=== PATIENT | female | born 2005 | race Caucasian/White ===

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

== ENCOUNTER → 2023-01-22 10:10 | Outpatient (BNVA) | payer MEDICAID, SELFPAY | PROVIDERS: PCP Nurse Practitioner Family; Referring Provider Nurse Practitioner Family; Visit Provider Nurse Practitioner Family | DX: B35.3 Tinea pedis (principal); L74.513 Primary focal hyperhidrosis, soles; B36.0 Pityriasis versicolor; L30.9 Dermatitis, unspecified | CPT/HCPCS: 11102; 99204 ==

== ENCOUNTER → 2023-04-29 14:27 | Outpatient (BNVA) | payer MEDICAID, SELFPAY | PROVIDERS: Visit Provider Nurse Practitioner Family | DX: B35.3 Tinea pedis (principal); L30.4 Erythema intertrigo | CPT/HCPCS: 99214 ==

== ENCOUNTER → 2023-07-07 15:00 | Outpatient (BNVA) | payer MEDICAID, SELFPAY | PROVIDERS: PCP Nurse Practitioner Family; Visit Provider Nurse Practitioner Family | DX: N39.0 Urinary tract infection, site not specified (principal); R32 Unspecified urinary incontinence | CPT/HCPCS: 81000; 87077; 87086; 87184 ==

== ENCOUNTER → 2023-07-16 14:32 | Outpatient (BNVA) | payer MEDICAID, SELFPAY | PROVIDERS: PCP Nurse Practitioner Family; Visit Provider Nurse Practitioner Family | DX: N30.00 Acute cystitis without hematuria (principal) | CPT/HCPCS: 81000; 87086 ==

== ENCOUNTER → 2023-07-30 15:00 | Outpatient (BNVA) | payer MEDICAID, SELFPAY | PROVIDERS: PCP Nurse Practitioner Family; Visit Provider Nurse Practitioner Family | DX: B35.3 Tinea pedis (principal); L21.8 Other seborrheic dermatitis; L81.4 Other melanin hyperpigmentation | CPT/HCPCS: 99214 ==

== ENCOUNTER → 2023-09-04 14:16 | Outpatient (BNVA) | payer MEDICAID, SELFPAY | PROVIDERS: PCP Nurse Practitioner Family; Visit Provider Nurse Practitioner Women's Health | DX: N39.0 Urinary tract infection, site not specified (principal) | CPT/HCPCS: 81000 ==

== ENCOUNTER → 2023-09-23 12:04 | Outpatient (BNVA) | payer MEDICAID, SELFPAY | PROVIDERS: PCP Nurse Practitioner Family; Visit Provider Nurse Practitioner Women's Health | DX: N92.5 Other specified irregular menstruation (principal) | CPT/HCPCS: 76856 ==

== ENCOUNTER → 2024-01-04 10:55 | Outpatient (BNVA) | payer MEDICAID, SELFPAY | PROVIDERS: PCP Nurse Practitioner Family; Referring Provider Nurse Practitioner Family; Visit Provider Psychiatry & Neurology Neurology | DX: G40.919 Epilepsy, unspecified, intractable, without status epilepticus (principal) | CPT/HCPCS: 99203 ==

== ENCOUNTER 2024-01-08 08:10 | Outpatient (CLI) | payer MEDICAID, SELFPAY ==
[2024-01-08 08:49] LABS: Basophils # 0.1 10^3/uL (0.0-0.1); Basophils % 1.5 %; Eosinophils # 0.6 10^3/uL (0.0-0.8); Eosinophils % 8.8 %; Hematocrit 35.5 % (36-47); Lymphocytes # 2.1 10^3/uL (1.5-6.5); Lymphocytes % 32.5 %; Mean Corpuscular HGB Conc 32.4 g/dL (30-55); Mean Corpuscular Hemoglobin 32.6 pg (27-33); Mean Corpuscular Volume 100.6 fl (85-98); Mean Platelet Volume 9.8 fL (7.4-10.4); Monocytes # 0.5 10^3/uL (0.2-0.9); Monocytes % 7.6 %; Neutrophils # 3.17 10^3/uL (1.8-8.0); Neutrophils % 49.1 %; Nucleated Red Blood Cells % 0 %; Platelet Count 329 10^3/cmm (157-399); Red Blood Count 3.53 10^6/uL (3.85-5.65); Red Cell Distribution Width 12.6 % (12.1-15.1); White Blood Count 6.46 10^3/uL (4.5-13.0)
[2024-01-08 09:28] LABS: 25 Hydroxy Vitamin D 37 ng/mL (30-100); Alanine Aminotransferase 6 U/L (0-33); Albumin Level 4.5 g/dL (3.5-5.2); Alkaline Phosphatase 117 U/L (35-105); Anion Gap 17.2 (5-19); Aspartate Amino Transferase 11 U/L (0-32); Blood Urea Nitrogen 9 mg/dL (6-20); Calcium 9.6 mg/dL (8.5-10.5); Carbon Dioxide 23 mmol/L (22-29); Chloride 103 mmol/L (98-107); Globulin 3.4 g/dL (1.3-4.6); Glomerular Filtration Rate 106.7 mL/min (90-130); Glucose 87 mg/dL (65-115); Osmolality Calculated 286 mOsm/kg (285-295); Potassium 4.2 mmol/L (3.5-5.1); Sodium 139 mmol/L (136-145); Thyroid Stimulating Hormone 2.05 uIU/mL (0.27-4.20); Total Bilirubin 0.2 mg/dL (0.15-1.2); Total Protein 7.9 g/dL (6.6-8.7); Vitamin B12 224 pg/mL (232-1245)
[2024-01-08 09:38] LABS: Free T4 Free Thyroxine 0.85 ng/dL (0.82-1.77); T3 Free 3.3 PG/ML (2.0-4.4)
[2024-01-08 12:11] LABS: Folate Level 5.1 ng/mL (4.8-37.3)
[2024-01-12 09:44] LABS: Methylmalonic Acid 841 nmol/L (55-335)
== END 2024-01-08 08:11 | disposition home or self-care (01) ==
LOC: LAB 08:13
PROVIDERS: PCP Nurse Practitioner Family; Visit Provider Psychiatry & Neurology Neurology
DX: G40.409 Other generalized epilepsy and epileptic syndromes, not intractable, without status epilepticus (principal); G40.909 Epilepsy, unspecified, not intractable, without status epilepticus; E55.9 Vitamin D deficiency, unspecified
CPT/HCPCS: 80053; 80167; 80168; 80175; 82306; 82607; 82746; 83090; 83735; 83921; 84439; 84443; 84481; 85025

== ENCOUNTER 2024-01-21 08:44 | Outpatient (CLI) | payer MEDICAID, SELFPAY | END 2024-01-21 08:45 | disposition home or self-care (01) | LOC: LAB 08:45 | PROVIDERS: PCP Nurse Practitioner Family; Visit Provider Psychiatry & Neurology Neurology | DX: G40.919 Epilepsy, unspecified, intractable, without status epilepticus (principal) | CPT/HCPCS: 36415; 80168 ==

== ENCOUNTER 2024-01-28 15:26 | Oncology outpatient (recurring) (ONCR) | payer MEDICAID, SELFPAY ==
--- OUTSIDE RECORDS SUMMARY | 2024-01-28 15:29 | XMS_ITS ---
Author Name Unknown Organization [facility] Address [address] [place] [address] Care Team Providers Care Screw Down Name Role Phone Carlos OBRIEN-Britany Montiel Primary Care Provider Unav Kael Mccormick Unavailable [phone] Allergies Allergen (clinical drug ingredient) Drug/Non Drug Allergy documented on EMR Reaction Allergy Type Onset Date Status Pollen Pollen Unknown Allergy Active REASON FOR VISIT LT KNEE Medications Medication SIG (Take, Route, Fr equency, Duration) Notes Start Date End Date Status CeleBREX 200 MG 1 capsule with food Orally Once a day for 30 days 01/06/2024 Active Nasal [place] Active Onfi Active ZyrTEC Active Cannabidiol Active Magnesium Active Multi Vitamin Active Eye Drops Active Felbamate Active LaMICtal Active Ethosuximide Active Vital Signs Blood pressure systolic 138 mm Hg 01/06/20 24 Blood pressure diastolic 98 mm Hg 024 Heart Rate 101 /min 01/06/2024 Height 62 in 01/06/2024 Oximetry 98 % 01/06/2024 Height-cm 157.48 cm 01/06/2024 Encounters Encounter Location Date Provider Diagnosis [facility] [address] [place] [address], [place] [address] 01/06/2024 Kael Metzger Postoperative state Z98.890 Assessments Encounter Date Diagnosis (ICD Code) Assessment Notes Treat ment Notes Treatment Clinical Notes 01/06/2024 Postoperative state (ICD-10 - Z98.890) Plan Of Treatment Medication Medication Name Sig Start Date Stop Date Notes CeleBREX 200 MG 1 capsule with food Orally Once a day for 30 days 01/06/2024 Next Appt Details Provider Name:Kael Metzger , 02/10/2024 01:00:00 PM, [address] [place] [address], [place], [address], Progress Notes * Sravani RUFFINOB:[birth year] (18 yo F)Acc No.[id number]:01/06/2024 Patient:?Tamar RUFFIN Provider:?Kael Metzger MD :2005???Age:18 Y???Sex:Female D ate:01/06/2024 Address:[address] [place], [place] [id number] Pcp:GLORIA Saavedra Check In:11:07 AM CSTCheck O ut:03:02 PM 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 Lissa is followed for a tibial tubercle transfer and medial patellofemoral ligament reconstruction. She is here for routine check. Her incisions look great. She has little swelling in her knee. * ROS:?Negative except as stated in HPI. . * Medical History:? * Surgical History:?tonsillect terese and adenoidectomy 10/2018vagus nerve stimulation 11/2022 * Hospitalization/Major Diagno stic Procedure:?Covid urgical HX * Family History:?Father: inessa cabrera 45 yrs.?Mother: alive 42 yrs.?Siblings: alive 16 yrs.? Grandma-unspecified Heart disease, diabetic.? Great Grandpa unspecified - heart attack, diabetic.? Great Grandma - Brain Tumor/Cancer. * Medications:?TakingCannabidi ol Ethosuximide Eye Drops Felbamate LaMICtal Magnesium Multi Vitamin Nasal [place] Onfi ZyrTEC Medication List reviewed and reconciled with the patientTaking Cannabidiol Taking Ethosuximide Taking Eye Drops Taking Felbamate Taking LaMICtal Taking Magnesium Taking Multi Vitamin Taking Nasal [place] Taking Onfi Taking ZyrTEC Medication List reviewed and reconciled with the patient * Allergies:?Pollenno[Allergie s Verified] Objective: * Vitals:?Ht: 62 in, BP:138/98 mm Hg, HR:101/min, Oxygen sat %:98%, O2 Source: ra, Ht-cm: 157.48 cm. Assessment: * Assessment: 1.?Postoperative state - Z98 .890 (Primary)??? I will have Tamar tyler orking on passive and active range of motion of the right knee with the therapist and little sprain. I will see her back in 4 weeks. She states she did best with Tylenol and Celebrex for pain I will refill those medications. Plan: * Treatment: * Procedure Codes:?3075F SYST BP GE 130 - 139MM HG * Billing Information: * Visit Code:? * Procedure Codes:? 3075F SYST BP GE 130 - 139MM HG. * Sign off status: Completed true * Provider:?Kael Metzger MD Date:?01/05 Generated for Bryan kohli/Xander/Spikeitting on:?01/28/2024 03:29 PM CDT
--- OUTSIDE RECORDS SUMMARY | 2024-01-28 15:29 | XMS_ITS ---
Author Name Unknown Organization [facility] Address [address] [facility] [place] [address] Care Team Providers Care Director Of Marketing Operations Name Role Phone Britany Fernandez Primary Care Provider Unav Kael Mccormick Unavailable [phone] REASON FOR VISIT LT KNEE Encounters Encounter Location Date Provider Diagnosis [facility] [address] [place] [address] 12/30/2023 Kael Metzger Plan Of Treatment Next Appt Details Provider Name:Kael Metzger , 02/10/2024 01:00:00 PM, [address] [place] [address], [place], [address], Progress Notes * Sravani RUFFINOB:[birth year] (18 yo F)Acc No.[id number]:12/30/2023 Patient:?Tamar RUFFIN Provider:?Kael Metzger MD :2005???Age:18 Y???Sex:Female D ate:12/30/2023 Address:[address] [place], [place] [phone] Pcp:GLORIA Saavedra Subjective: * Chief Complaints: * ???1. LT KNEE. * Medical History:? Objective: * Vitals:? Assessment: Plan: * Treatment: * Billing Information: * Visit Code:? * Procedure Codes:? * Electronic signature of Bernie Metzger MD on 01/28/2024 at 03:29 PM CDT Sign off status: Pending * Provider:?Kael Metzger MD Date:?12/29 Generated for Bryan kohli/Xander/Paula on:?01/28/2024 03:29 PM CDT
--- OUTSIDE RECORDS SUMMARY | 2024-01-28 15:29 | XMS_ITS ---
Author Name Unknown Organization [facility] Address [address] [place] [address] Care Team Providers Care Telephone Operator Name Role Phone Carlos OBRIEN-Britany Montiel Primary Care Provider Unav ailable Kael Metzger Unavailable [phone] REASON FOR VISIT Needs referral Encounters Encounter Location Date Provider Diagnosis [facility] [address] [place] [address] 01/25/2024 Kael Metzger Plan Of Treatment Next Appt Details Provider Name:Kael Metzger , 02/10/2024 01:00:00 PM, [address] [place], [address], Progress Notes * Sravani RUFFINOB:[birth year] (18 yo F)Acc No.[id number]:01/25/2024 Patient:?Ministerio RUFFINabelle :2005???Age:18 Y???Sex:Female Address:[address] [place] [address], [address] * true * Date:? Generated for Printi ng/Faana rosag/eTransmitting on:?01/28/2024 03:29 PM CDT
--- OUTSIDE RECORDS SUMMARY | 2024-01-28 15:30 | XMS_ITS | Patient Health Record ---
Author Name Unknown Organization [facility] Address [address] [place] [address] Care Team Providers Care Director Of Science Name Role Phone Carlos OBRIEN-Britany Montiel Primary Care Provider Unav Kael Mccormick Unavailable [phone] Allergies Allergen (clinical drug ingredient) Drug/Non Drug Allergy documented on EMR Reaction Allergy Type Onset Date Status Pollen Pollen Unknown Allergy Active Reason For Referral Reason Evaluate and treat p atient for PROM and AROM S/P RIGHT knee tibial transfer and medical patellofemoral ligament reconstruction on 12/17/2023, 2-3 times a week for 4-6 weeks Diagnosis 1 Postoperative state (Z98.890) Diagnosis 2 Patellar instability of left knee (M25.362) Referral Organization [facility] Referring Provider First Name Kael Referring Provider Last Name Domenica Referring Provider Speciality Orthopedic Surgery Referred Provider Referred Provider Specialty Physical The rapist Referral Priority Routine Medications Medication SIG (Take, Route, Fr equency, Duration) Notes Start Date End Date Status CeleBREX 200 MG 1 capsule with food Orally Once a day for 30 days 01/06/2024 Active Magnesium Active Multi Vitamin Active Nasal [place] Active Onfi Active ZyrTEC Active Cannabidiol Active Ethosuximide Active Eye Drops Active Felbamate Active LaMICtal Active Vital Signs Heart Rate 101 /min 01/06/2024 Height-cm 157.48 cm 01/06/2024 Oximetry 98 % 01/06/2024 Blood pressure diastolic 98 mm Hg 01/06/2024 Weight-kg 92.7 kg 10/19/2023 Height 62 in 01/06/2024 Blood pressure systolic 138 mm Hg 01/06/2024 Weight 204.37 lbs 10/19/2023 BMI 37.38 kg/m2 10/19/2023 Encounters Encounter Location Date Provider Diagnosis [facility] [address] [place] [address] 11/19/2023 Kael Domenica Patellar instability of left knee M25.362 [facility] [address] [place] [address] 01/25/2024 Kaelaron Grulloneder [facility] [address] [place] [address] 10/19/2023 Kael Metzger Left knee pain, unspecified chronicity M25.562 and Patellar instability of left knee M25.362 [facility] [address] [place] [address] 12/17/2023 Kael Metzger [facility] [address] [place] [address] 01/06/2024 Kael Metzger Postoperative state Z98.890 Assessments Encounter Date Diagnosis (ICD Code) Assessment Notes Treat ment Notes Treatment Clinical Notes 10/19/2023 Left knee pain, unspecified chronicity (ICD-10 - M25.562) 10/19/2023 Patellar instability of left knee (ICD-10 - M25.362) 11/19/2023 Patellar instability of left knee (ICD-10 - M25.362) 01/06/2024 Postoperative state (ICD-10 - Z98.890) Plan Of Treatment Pending Test Test Name Order Date Knee 1 or 2V 10/19/2023 Basic Metabolic Panel (BMP) 98709 2023 CBC Reflex Man Diff 37721, 07667 024 Electrocardiogram 12 Lead Tracing-12662 11/19/2023 Next Appt Details Provider Name:Kael Christiane Domenica , 02/10/2024 01:00:00 PM, [address] [place] [address], [place], [address], Insurance Providers Payer Name Payer Address Payer Phone Subscriber Number Group Number Insured Name Patient Relationship to Insured Coverage Start Date Coverage End Date [place] Medicaid [address] [facility] [place] [address] [id number] Tamar Ruffin Self - patient is the insured Medical (General) History Medical History History ICD Code whooping cough (pertussis) epilepsy Surgical History Surgery Date(Month/Year) tonsillectomy and adenoidectomy 10/2018 vagus nerve stimulation 11/2022 Hospitalization History Reason Date(Month/Year) Surgical HX Covid 07/2021
== END 2024-02-06 23:59 | disposition home or self-care (01) ==
PROVIDERS: Visit Provider Internal Medicine Medical Oncology
DX: E53.8 Deficiency of other specified B group vitamins (principal); D64.9 Anemia, unspecified
CPT/HCPCS: 99204

== ENCOUNTER 2024-02-01 11:57 | Outpatient (RCR) | payer MEDICAID, SELFPAY | END 2024-02-06 18:00 | disposition home or self-care (01) | LOC: SPT 11:57 | PROVIDERS: Visit Provider Orthopaedic Surgery | DX: Z98.890 Other specified postprocedural states (principal); M25.362 Other instability, left knee | CPT/HCPCS: 97110; 97116; 97161 ==

== ENCOUNTER 2024-02-07 06:00 | Outpatient (RCR) | payer MEDICAID, SELFPAY | END 2024-03-07 23:59 | disposition home or self-care (01) | LOC: SPT 06:00 | PROVIDERS: Visit Provider Orthopaedic Surgery | DX: Z47.89 Encounter for other orthopedic aftercare (principal); M25.362 Other instability, left knee | CPT/HCPCS: 97110 ==

== ENCOUNTER → 2024-02-18 15:41 | Outpatient (BNVA) | payer MEDICAID, SELFPAY | PROVIDERS: Visit Provider Psychiatry & Neurology Neurology | DX: G40.919 Epilepsy, unspecified, intractable, without status epilepticus (principal); G40.909 Epilepsy, unspecified, not intractable, without status epilepticus | CPT/HCPCS: 95816 ==

== ENCOUNTER 2024-02-29 14:27 | Oncology outpatient (recurring) (ONCR) | payer MEDICAID, SELFPAY ==
--- OUTSIDE RECORDS SUMMARY | 2024-02-11 10:53 | XMS_ITS ---
Author Name Unknown Organization [facility] Address [address] [place] [address] Care Team Providers Care Die Press Operator Name Role Phone Carlos OBRIEN-Britany Montiel Primary Care Provider Unav ailable Kael Metzger Unavailable [phone] REASON FOR VISIT Needs referral Encounters Encounter Location Date Provider Diagnosis [facility] [address] [place] [address] 01/25/2024 Kael Metzger Plan Of Treatment Next Appt Details Provider Name:Kael Metzger , 03/18/2024 11:00:00 AM, [address] [place], [address], Progress Notes * Sravani RUFFINOB:[birth year] (18 yo F)Acc No.[id number]:01/25/2024 Patient:?Ministerio RUFFINabelle :2005???Age:18 Y???Sex:Female Address:[address] [place] [address], [address] * true * Date:? Generated for Printi seun/Xander/eTransmitting on:?02/11/2024 10:53 AM CDT
--- OUTSIDE RECORDS SUMMARY | 2024-02-11 10:53 | XMS_ITS ---
Author Name Unknown Organization [facility] Address [address] [place] [address] Care Team Providers Care Direct Care Worker Name Role Phone Britany Fernandez Primary Care Provider Unav Kael Mccormick Unavailable [phone] Allergies Allergen (clinical drug ingredient) Drug/Non Drug Allergy documented on EMR Reaction Allergy Type Onset Date Status Pollen Pollen Unknown Allergy Active REASON FOR VISIT LEFT KNEE Medications Medication SIG (Take, Route, Fr equency, Duration) Notes Start Date End Date Status Celecoxib 200 MG TAKE 1 CAPSULE BY [facility] ONCE DAILY WITH FOOD FOR 30 DAYS for 30 Act nikolai Ethosuximide Active Cannabidiol Active Onfi Active ZyrTEC Active Felbamate Active Multi Vitamin Active Nasal [place] Active LaMICtal Active Magnesium Active Eye Drops Active Vital Signs Blood pressure systolic 110 mm Hg 02/10/20 24 Blood pressure diastolic 73 mm Hg 024 Heart Rate 88 /min 02/10/2024 Height 62 in 02/10/2024 Oximetry 98 % 02/10/2024 Height-cm 157.48 cm 02/10/2024 Encounters Encounter Location Date Provider Diagnosis [facility] [address] [place] [address], [place] [address] 02/10/2024 Kael Metzger Left knee pain, unspecified chronicity M25.562 Assessments Encounter Date Diagnosis (ICD Code) Assessment Notes Treat ment Notes Treatment Clinical Notes 02/10/2024 Left knee pain, unspecified chronicity (ICD-10 - M25.562) Plan Of Treatment Pending Test Test Name Order Date X-RAY EXAM OF KNEE 1 OR 2 02/10/2024 Next Appt Details Provider Name:Kael Metzger , 03/18/2024 11:00:00 AM, [address] [place] [address], [place], [address], Progress Notes * Sravani RUFFINOB:[birth year] (19 yo F)Acc No.[id number]:02/10/2024 Patient:?Tamar RUFFIN Provider:?Kael Metzger MD :2005???Age:19 Y???Sex:Female D ate:02/10/2024 Address:[address] [place], [place] [phone] Pcp:GLORIA Saavedra Check In:12:57 PM CSTCheck O ut:02:00 PM 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 She has been working with therapy in [place]. * ROS:?Negative except as stated in HPI. * Medical History:? * Surgical History:?tonsillect terese and adenoidectomy 10/2018vagus nerve stimulation 11/2022 * Hospitalization/Major Diagno stic Procedure:?Covid urgical HX * Family History:?Father: inessa cabrera 45 yrs.?Mother: alive 42 yrs.?Siblings: alive 16 yrs.? Grandma-unspecified Heart disease, diabetic.? Great Grandpa unspecified - heart attack, diabetic.? Great Grandma - Brain Tumor/Cancer. * Medications:?TakingCannabidi ol Celecoxib 200 MG Capsule TAKE 1 CAPSULE BY MOUTH ONCE DAILY WITH FOOD FOR 30 DAYS Ethosuximide Eye Drops Felbamate LaMICtal Magnesium Multi Vitamin Nasal [place] Onfi ZyrTEC Medication List reviewed and reconciled with the patientTaking Cannabidiol Taking Celecoxib 200 MG Capsule TAKE 1 CAPSULE BY MOUTH ONCE DAILY WITH FOOD FOR 30 DAYS Taking Ethosuximide Taking Eye Drops Taking Felbamate Taking LaMICtal Taking Magnesium Taking Multi Vitamin Taking Nasal [place] Taking Onfi Taking ZyrTEC Medication List reviewed and reconciled with the patient * Allergies:?Pollenno[Allergie s Verified] Objective: * Vitals:?Ht: 62 in, BP:110/73 mm Hg, HR:88/min, Oxygen sat %:98%, O2 Source: ra, Ht-cm: 157.48 cm. * Examination: ???General Examination: ???On examination of her left knee there is a small open area in the midportion of her incision which seems superficial. I can express no drainage. I suspect this was a stitch abscess or irritation. She can?full extension and bend 90 degrees. Her patella tracks well. ??? Assessment: * Assessment: 1.?Left knee pain, unspecifi ed chronicity - M25.562 (Primary)??? Tamar will continue with outpatient therapy. I will have her discontinue her brace as I think it is contributing to her wound problems. She will continue with crutches until her strength is better and she is walking normal. I will see her back in 4 weeks in [place]. Plan: * Treatment: * Procedure Codes:?78767 X-RAY EXAM OF KNEE, 1 OR 2 * Billing Information: * Visit Code:? * Procedure Codes:? 71341 X-RAY EXAM OF KNEE, 1 OR 2. * Sign off status: Completed true * Provider:?Kael Metzger MD Date:?02/09 Generated for Bryan kohli/Xander/Spikeitting on:?02/11/2024 10:53 AM CDT
--- OUTSIDE RECORDS SUMMARY | 2024-02-11 10:54 | XMS_ITS | Patient Health Record ---
Author Name Unknown Organization [facility] Address [address] [place] [address] Care Team Providers Care Planting Machine Operator Name Role Phone Carlos OBRIEN-Britany Montiel Primary Care Provider Unav Kael Mccormick Unavailable [phone] Allergies Allergen (clinical drug ingredient) Drug/Non Drug [...] instability of left knee (M25.362) Referral Organization [facility] Referring Provider First Name Kael Referring Provider Last Name Domenica Referring Provider Speciality Orthopedic Surgery Referred Provider [facility] Referred Provider Specialty 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 The rapist Referral Priority Routine Medications Medication SIG (Take, Route, Fr equency, Duration) Notes Start Date End Date Status Eye Drops Active Felbamate Active Celecoxib 200 MG TAKE 1 CAPSULE BY [facility] ONCE DAILY WITH FOOD FOR 30 DAYS for 30 Act nikolai Ethosuximide Active Cannabidiol Active Onfi Active ZyrTEC Active Multi Vitamin Active Nasal [place] Active LaMICtal Active Magnesium Active Vital Signs Heart Rate 88 /min 02/10/2024 Blood pressure diastolic 73 mm Hg 02/10/2024 Oximetry 98 % 02/10/2024 Height-cm 157.48 cm 02/10/2024 Weight-kg 92.7 kg 10/19/2023 Height 62 in 02/10/2024 Blood pressure systolic 110 mm Hg 02/10/2024 Weight 204.37 lbs 10/19/2023 BMI 37.38 kg/m2 10/19/2023 Encounters Encounter Location Date Provider Diagnosis [facility] [address] [place] [address] 10/19/2023 Kael Metzger Left knee pain, unspecified chronicity M25.562 and Patellar instability of left knee M25.362 [facility] [place] [address] [place] [address] 12/17/2023 Kael Metzger [facility] [address] [place] [address] 01/06/2024 Kael Metzger Postoperative state Z98.890 [facility] [place] [address] [place] [address] 02/10/2024 Kael Metzger Left knee pain, unspecified chronicity M25.562 [facility] [place] [address] [place] [address] 11/19/2023 Kael Metzger Patellar instability of left knee M25.362 [facility] [place] [address] [place] [address] 01/25/2024 Kael Metzger Assessments Encounter Date Diagnosis (ICD Code) Assessment Notes Treat ment Notes Treatment Clinical Notes 10/19/2023 Left knee pain, unspecified chronicity (ICD-10 - M25.562) 10/19/2023 Patellar instability of left knee (ICD-10 - M25.362) 11/19/2023 Patellar instability of left knee (ICD-10 - M25.362) 01/06/2024 Postoperative state (ICD-10 - Z98.890) 02/10/2024 Left knee pain, unspecified chronicity (ICD-10 - M25.562) Plan Of Treatment Pending Test Test Name Order Date X-RAY EXAM OF KNEE 1 OR 2 02/10/2024 Knee 1 or 2V 10/19/2023 Basic Metabolic Panel (BMP) 85496 2023 CBC Reflex Man Diff 82553, 03669 024 Electrocardiogram 12 Lead Tracing-81121 11/19/2023 IH Knee 2V Left - 45370 02/10/2024 IH Knee 2V Left - 33439 02/10/2024 Next Appt Details Provider Name:Kael Metzger , 03/18/2024 11:00:00 AM, [address] [facility], [place], [address], Insurance Providers Payer Name Payer Address Payer Phone Subscriber Number Group Number Insured Name Patient Relationship to Insured Coverage Start Date Coverage End Date [place] Medicaid [address] [place] [address] [id number] Tamar Ruffin Self - patient is the insured Medical (General) History Medical History History ICD Code whooping cough (pertussis) epilepsy Surgical History Surgery Date(Month/Year) tonsillectomy and adenoidectomy 10/2018 vagus nerve stimulation 11/2022 Hospitalization History Reason Date(Month/Year) Surgical HX Covid 07/2021
--- OUTSIDE RECORDS SUMMARY | 2024-02-11 10:54 | XMS_ITS ---
Author Name Unknown Organization [facility] Address [address] [place] [address] Care Team Providers Care Tool Filer Hand Name Role Phone Carlos OBRIEN-Britany Montiel Primary Care Provider Unav Kael Mccormick Unavailable [phone] Allergies Allergen (clinical drug ingredient) Drug/Non Drug Allergy documented on EMR Reaction Allergy Type Onset Date Status Pollen Pollen Unknown Allergy Active REASON FOR VISIT LT KNEE Medications Medication SIG (Take, Route, Fr equency, Duration) Notes Start Date End Date Status CeleBREX 200 MG 1 capsule with food Orally Once a day for 30 days 01/06/2024 Active Nasal [place] Active Onfi Active ZyrTEC Active Cannabidiol Active Magnesium Active Multi Vitamin Active Eye Drops Active Felbamate Active LaMICtal Active Ethosuximide Active Vital Signs Blood pressure systolic 138 mm Hg 01/06/20 24 Blood pressure diastolic 98 mm Hg 024 Heart Rate 101 /min 01/06/2024 Height 62 in 01/06/2024 Oximetry 98 % 01/06/2024 Height-cm 157.48 cm 01/06/2024 Encounters Encounter Location Date Provider Diagnosis [facility] [address] [place] [address], [place] [address] 01/06/2024 Kael Metzger Postoperative state Z98.890 Assessments Encounter Date Diagnosis (ICD Code) Assessment Notes Treat ment Notes Treatment Clinical Notes 01/06/2024 Postoperative state (ICD-10 - Z98.890) Plan Of Treatment Medication Medication Name Sig Start Date Stop Date Notes CeleBREX 200 MG 1 capsule with food Orally Once a day for 30 days 01/06/2024 Next Appt Details Provider Name:Kael Metzger , 03/18/2024 11:00:00 AM, [address] [place] [address], [place], [address], Progress Notes * Sravani RUFFINOB:[birth year] (18 yo F)Acc No.[id number]:01/06/2024 Patient:?Tamar RUFFIN Provider:?Kael Metzger MD :2005???Age:18 Y???Sex:Female D ate:01/06/2024 Address:[address] [place], [place] [address] Pcp:GLORIA Saavedra Check In:11:07 AM CSTCheck Yariel ut:03:02 PM MILIEU COUNSELOR Subjective: * Chief Complaints: * ???LT KNEE [...] Drops Felbamate LaMICtal Magnesium Multi Vitamin Nasal [place] Onfi ZyrTEC Medication List reviewed and reconciled with the patientTaking Cannabidiol Taking Ethosuximide Taking Eye Drops Taking Felbamate Taking LaMICtal Taking Magnesium Taking Multi Vitamin Taking Nasal [place] Taking Onfi Taking ZyrTEC Medication List reviewed [...] Metzger MD Date:?01/05 Generated for Bryan kohli/Xander/Spikeitting on:?02/11/2024 10:53 AM CDT
[2024-02-11 12:22] LABS: Basophils # 0.1 10^3/uL (0.0-0.1); Basophils % 1.6 %; Eosinophils # 0.7 10^3/uL (0.0-0.8); Eosinophils % 10.4 %; Hematocrit 34.8 % (36-47); Lymphocytes # 1.6 10^3/uL (0.8-4.8); Lymphocytes % 24.8 %; Mean Corpuscular HGB Conc 33.3 g/dL (30-55); Mean Corpuscular Volume 98.9 fl (85-98); Mean Platelet Volume 9.6 fL (7.4-10.4); Monocytes # 0.4 10^3/uL (0.2-0.9); Monocytes % 6.8 %; Neutrophils % 55.9 %; Nucleated Red Blood Cells % 0 %; Platelet Count 273 10^3/cmm (157-399); Red Blood Count 3.52 10^6/uL (3.85-5.65); Red Cell Distribution Width 12.2 % (12.1-15.1); White Blood Count 6.44 10^3/uL (3.29-11.43)
[2024-02-11 12:57] LABS: Alanine Aminotransferase 9 U/L (0-33); Albumin Level 4.6 g/dL (3.5-5.2); Alkaline Phosphatase 123 U/L (35-105); Anion Gap 16.2 (5-19); Aspartate Amino Transferase 12 U/L (0-32); Blood Urea Nitrogen 10 mg/dL (6-20); Calcium 9.4 mg/dL (8.5-10.5); Carbon Dioxide 23 mmol/L (22-29); Chloride 104 mmol/L (98-107); Ferritin 20 ng/mL (15-150); Globulin 2.9 g/dL (1.3-4.6); Glomerular Filtration Rate 126.2 mL/min (90-130); Glucose 99 mg/dL (65-115); Iron 56 ug/dL (37-145); Osmolality Calculated 287 mOsm/kg (285-295); Percent Saturation 17.9 % (20-50); Potassium 4.2 mmol/L (3.5-5.1); Sodium 139 mmol/L (136-145); Total Bilirubin 0.2 mg/dL (0.15-1.2); Total Iron Binding Capacity 312 mcg/dl; Total Protein 7.5 g/dL (6.6-8.7); Unsaturated Iron Binding 256 ug/dL (112-347)
[2024-02-11 13:09] LABS: Folate Level 7.6 ng/mL (4.8-37.3)
[2024-02-11 13:13] LABS: Vitamin B12 421 pg/mL (232-1245)
[2024-02-14 03:50] LABS: Methylmalonic Acid 139 nmol/L (55-335)
[2024-02-15 15:40] LABS: Intrinsic Factor Blocking AB NEGATIVE
== END 2024-03-07 23:59 | disposition home or self-care (01) ==
PROVIDERS: Visit Provider Internal Medicine Medical Oncology
DX: D64.9 Anemia, unspecified (principal)
CPT/HCPCS: 36415; 80053; 82607; 82728; 82746; 83540; 83550; 83921; 85025; 86340; 99214

== ENCOUNTER 2024-03-14 10:36 | Emergency (ER) | payer MEDICAID, SELFPAY ==
[2024-03-14] VITALS (9 sets, daily range): BP systolic 115–130; BP diastolic 71–83; PULSE 91–108; RESP 16–18; TEMP 36.7; O2SAT 94–98; BMI 34.3
--- NOTE | 2024-03-14 11:37 | W.ED.SEIZURE ---
HPI - Seizure General: Chief Complaint: Seizure Stated Complaint: seizures Time Seen by Provider: 03/14/24 11:08 History of Present Illness: HPI Narrative: 19-year-old female with a long history of seizure disorder on multiple different seizure medications and with a vagal nerve stimulator who recently started following with Dr. Raymundo in neurology who presents to the emergency room after having 2 tonic-clonic seizures of about 5 minutes and an absence seizure this morning. Mom says that when the vagal nerve stimulator and the nasal medication did not work she became very worried so she brought her to the emergency room. Mom says she seems a little bit glassy . Not quite herself. Otherwise she is currently alert and oriented. No focal motor deficits. She complains of some mild right knee pain. No deformity. No fevers. She has had some congestion. No nausea or vomiting. No abdominal pain. Seizure History: Yes Related Data Home Medications Medication Instructions Recorded Confirmed multivitamin 1 tab PO DAILY 01/23/22 03/14/24 Vagus Nerve Stimulator 12/16/22 03/14/24 midazolam 5 mg/spray (0.1 mL) 1 mg intranasal DAILY 07/07/23 03/14/24 nasal spray (Nayzilam) ketoconazole 2 % shampoo 1 applic topical PRN 01/04/24 03/14/24 clobazam 10 mg tablet 10 mg PO BID 03/14/24 03/14/24 Previous Rx's Medication Instructions Recorded DENISE- [facility] Balance Brace #1 ea 11/06/21 Bilaterally cetirizine 10 mg capsule (Zyrtec) 10 mg PO PRN PRN Allergic Symptoms 10/17/22 #180 caps fluticasone propionate 50 1 spray intranasal DAILY PRN 12/16/22 mcg/actuation nasal Allergic Symptoms #16 grams spray,suspension cannabidiol 100 mg/mL oral 900 mg (9 mL) PO ONCE #100 mL 01/25/24 solution (Epidiolex) ethosuximide 250 mg capsule See Rx Instructions PO BID #90 caps 01/26/24 lamotrigine 200 mg tablet See Rx Instructions PO BID #60 tabs 01/26/24 (Lamictal) felbamate 400 mg tablet 400 mg PO TID #90 tabs 02/09/24 lamotrigine 100 mg tablet 100 mg PO ONCE #30 tabs 02/09/24 ferrous sulfate 325 mg (65 mg 325 mg PO DAILY #30 tabs 02/29/24 iron) tablet cefdinir 300 mg capsule 300 mg PO BID 7 days #14 caps 03/14/24 Allergies Allergy/AdvReac Type Severity Reaction Status Date / Time seasonal Allergy Intermediate ALGY-Sneezi Uncoded 03/14/24 11:09 ng cigerette smoke Allergy Mild ALGY-Sneezi Uncoded 03/14/24 11:09 ng Review of Systems Narrative: Constitutional symptoms: Negative except as documented in HPI. Skin symptoms: Negative except as documented in HPI. Eye symptoms: Negative except as documented in HPI. ENMT symptoms: Negative except as documented in HPI. Respiratory symptoms: Negative except as documented in HPI. Cardiovascular symptoms: Negative except as documented in HPI. Gastrointestinal symptoms: Negative except as documented in HPI. Genitourinary symptoms: Negative except as documented in HPI. Musculoskeletal symptoms: Negative except as documented in HPI. Neurologic symptoms: Negative except as documented in HPI. Psychiatric symptoms: Negative except as documented in HPI. Endocrine symptoms: Negative except as documented in HPI. PFSH ED PFSH: Medical History B12 deficiency GERD (gastroesophageal reflux disease) Abnormal uterine bleeding (AUB) Hyperhidrosis of feet Onychodystrophy Intellectual disability Seizure disorder Diagnosed with seizures in 2012 and has been on medication since then. Follows with with Dr. Michel . She follows with her every 3-6 months. -Symptoms are well controlled on current regimen Surgical History History of left knee surgery (12/17/23) S/P placement of VNS (vagus nerve stimulation) device (2022) History of esophagogastroduodenoscopy (EGD) (06/03/21) S/P tonsillectomy and adenoidectomy (10/2018) Family History Grandmother Diabetes maternal and paternal Hypertension maternal and paternal Heart disease maternal and paternal Uterine cancer maternal great grandmother, diagnosed in her 50s Grandfather Heart disease paternal Thyroid disease paternal Family/Other Breast cancer Maternal great aunt, diagnosed in her 50s Cervical cancer paternal aunt Denies family history of Colon cancer DVT (deep venous thrombosis) Hyperlipidemia Stroke Social History Smoking and tobacco/nicotine status: never used tobacco/nicotine Alcohol intake: never Physical Exam Narrative: EXAM NARRATIVE: General: Alert, no acute distress. Skin: Warm, dry. Head: Normocephalic, atraumatic. Neck: Supple, trachea midline. Eye: Extraocular movements are intact. Ears, nose, mouth and throat: mucosa moist. Cardiovascular: Regular, Normal peripheral perfusion. Respiratory: Lungs are clear to auscultation, respirations are non-labored, breath sounds are equal, Symmetrical chest wall expansion. Gastrointestinal: Soft, Nontender, Non distended Musculoskeletal: Normal ROM, no deformity. Neurological: Alert and oriented, No focal neurological deficit observed. Psychiatric: Cooperative, appropriate mood & affect. Course Vital Signs: Vital signs: Vital Signs Temperature 98.1 F 03/14/24 11:03 Pulse Rate 96 03/14/24 11:39 Respiratory Rate 16 03/14/24 11:39 Blood Pressure 123/83 03/14/24 11:34 Pulse Oximetry 95 03/14/24 11:39 Oxygen Delivery Me thod Room Air 03/14/24 11:39 MDM - Seizure MDM Narrative Medical decision making narrative: Medical decision making: Differential diagnosis for this patient with a complaint of seizure like activity would include but not be limited to, and based on the above HPI, review of systems and physical exam: seizure, DT's, alcohol withdrawal, brain malignancy, pseudo-seizure, syncope. Orders placed to evaluate differential diagnosis based on the above differential, HPI and physical exam Lab Review: Laboratory results were reviewed and interpreted by myself the emergency room physician No leukocytosis. No anemia. Renal function is normal at six 0.7. She does have a significant urinary tract infection. I reviewed the patient's medical record. Consultation: I spoke with Dr. Raymundo at length about the patient. She needs trough seizure medication laboratories drawn tomorrow morning. He is ordering those and I have talked with mom that she needs to not take her medications in the morning until after the lab is drawn. He will see her in clinic soon. Likely the urinary tract infection that she has is what is causing worsening in her seizures today. Reexamination: Patient remained stable. No increased work of breathing. No altered mental status. No focal motor deficits. Assessment and plan: Urinary tract infection Seizure disorder Dehydration ?IV Rocephin, IV normal saline bolus and IV Toradol given along with 1 mg of IV Ativan - Discharged home - Discussed findings and plan with patient. Answered any questions. - All laboratory values were reviewed and interpreted personally by myself, the ER physician - Evaluation and treatment of this problem were appropriate in the emergency setting Lab Data 03/14/24 11:44 03/14/24 11:44 Labs: Laboratory Results WBC 10.57 10^3/uL (3.29-11.43) 03/14/24 11:44 RBC 4.03 10^6/uL (3.85-5.65) 03/14/24 11:44 Hgb 13.30 g/dL (11.27-16.99) 03/14/24 11:44 Hct 39.8 % (36-47) 03/14/24 11:44 MCV 98.8 fl (85-98) H 03/14/24 11:44 MCH 33.0 pg (27-33) 03/14/24 11:44 MCHC 33.4 g/dL (30-55) 03/14/24 11:44 RDW 12.4 % (12.1-15.1) 03/14/24 11:44 Plt Count 280 10^3/cmm (157-399) 03/14/24 11:44 MPV 9.3 fL (7.4-10.4) 03/14/24 11:44 Neut % (Auto) 83.1 % 03/14/24 11:44 Lymph % (Auto) 9.4 % 03/14/24 11:44 [place] % (Auto) 4.3 % 03/14/24 11:44 Eos % (Auto) 1.6 % 03/14/24 11:44 Baso % (Auto) 0.9 % 03/14/24 11:44 Neut # (Auto) 8.80 10^3/uL (1.8-7.7) H 03/14/24 11:44 Lymph # (Auto) 1.0 10^3/uL (0.8-4.8) 03/14/24 11:44 [place] # (Auto) 0.5 10^3/uL (0.2-0.9) 03/14/24 11:44 Eos # (Auto) 0.2 10^3/uL (0.0-0.8) 03/14/24 11:44 Baso # (Auto) 0.1 10^3/uL (0.0-0.1) 03/14/24 11:44 Nucleated RBC % (auto) 0 % 03/14/24 11:44 Nucleated RBCs # 0.0 /100WBC 03/14/24 11:44 Sodium 138 mmol/L (136-145) 03/14/24 11:44 Potassium 4.3 mmol/L (3.5-5.1) 03/14/24 11:44 Chloride 104 mmol/L (98-107) 03/14/24 11:44 Carbon Dioxide 22 mmol/L (22-29) 03/14/24 11:44 Anion Gap 16.3 (5-19) 03/14/24 11:44 BUN 6 mg/dL (6-20) 03/14/24 11:44 Creatinine 0.7 mg/dL (0.5-0.9) 03/14/24 11:44 GFR Calculation 105.6 mL/min (90-130) 03/14/24 11:44 Glucose 96 mg/dL (65-115) 03/14/24 11:44 Calculated Osmolality 283 mOsm/kg (285-295) L 03/14/24 11:44 Lactic Acid 1.3 mmol/L (0.5-2.2) 03/14/24 11:44 Calcium 9.5 mg/dL (8.5-10.5) 03/14/24 11:44 Total Bilirubin 0.3 mg/dL (0.15-1.2) 03/14/24 11:44 AST 16 U/L (0-32) 03/14/24 11:44 ALT 10 U/L (0-33) 03/14/24 11:44 Alkaline Phosphatase 116 U/L (35-105) H 03/14/24 11:44 C-Reactive Protein 6.9 mg/L (0.0-4.9) H 03/14/24 11:44 Total Protein 8.0 g/dL (6.6-8.7) 03/14/24 11:44 Albumin 4.6 g/dL (3.5-5.2) 03/14/24 11:44 Globulin 3.4 g/dL (1.3-4.6) 03/14/24 11:44 Urine Color Yellow (Yellow) 03/14/24 12:13 Urine Appearance Turbid (CLEAR) A 03/14/24 12:13 Urine pH 6.5 (5-7) 03/14/24 12:13 Ur Specific [place] 1.026 (1.005-1.030) 03/14/24 12:13 Urine Protein Trace (Negative) A 03/14/24 12:13 Urine Glucose (UA) Negative (Normal) 03/14/24 12:13 Urine Ketones Negative (Negative) 03/14/24 12:13 Urine Blood Negative (Negative) 03/14/24 12:13 Urine Nitrate Negative (Negative) 03/14/24 12:13 Urine Bilirubin Negative (Negative) 03/14/24 12:13 Urine Urobilinogen 1.0 mg/dL (Negative) 03/14/24 12:13 Ur Leukocyte Esterase 3+ (Negative) A 03/14/24 12:13 Urine RBC 3-5 /hpf (0-2) 03/14/24 12:13 Urine WBC >100 /hpf (0-5) H 03/14/24 12:13 Ur Squamous Epith Cells 21-50 /hpf (0-5) 03/14/24 12:13 Amorphous Sediment Not Reportable 03/14/24 12:13 Urine Bacteria 3+ /hpf (NONE) H 03/14/24 12:13 Hyaline Casts 6.17 /lpf 03/14/24 12:13 Urine Trichomonas 2+ /hpf H 03/14/24 12:13 Coronavirus (PCR) Negative (Negative) 03/14/24 11:35 Influenza A (PCR) Negative (Negative) 03/14/24 11:35 Influenza Type B (PCR) Negative (Negative) 03/14/24 11:35 RSV (PCR) Negative (Negative) 03/14/24 11:35 No radiology studies performed this visit Discharge Plan Discharge Patient Disposition: Home Clinical Impression: Epileptic seizure, Urinary tract infection Condition: Stable Prescriptions: New cefdinir 300 mg capsule 300 mg PO BID 7 Days Qty: 14 0RF No Action (DME) Vagus Nerve Stimulator 0 .Route .MEDSUPPLY fluticasone propionate 50 mcg/actuation spray,suspension 1 spray INTRANASAL DAILY PRN (Reason: Allergic Symptoms) Qty: 16 0RF ferrous sulfate 325 mg (65 mg iron) tablet 325 mg PO DAILY Qty: 30 0RF (DME) AFO- [place] Balance Brace Bilaterally See Rx Instructions .Route .MEDSUPPLY Qty: 1 0RF Rx Instructions: As directed [facility] multivitamin Tablet 1 tab PO DAILY Nayzilam 5 mg/spray (0.1 mL) spray,non-aerosol 1 mg intranasal DAILY ketoconazole 2 % shampoo 1 applic topical PRN Zyrtec 10 mg capsule 10 mg PO PRN PRN (Reason: Allergic Symptoms) Qty: 180 0RF Epidiolex 100 mg/mL solution 900 mg PO ONCE Qty: 100 8RF ethosuximide 250 mg capsule See Rx Instructions PO BID Qty: 90 8RF Rx Instructions: orally twice a day; 500 mg every morning, 750 mg every night lamotrigine [Lamictal] 200 mg tablet See Rx Instructions PO BID Qty: 60 8RF Rx Instructions: orally twice a day; 350 mg p.o. every morning and 400 mg p.o. nightly felbamate 400 mg tablet 400 mg PO TID Qty: 90 5RF lamotrigine 100 mg tablet 100 mg PO ONCE Qty: 30 5RF clobazam 10 mg tablet 10 mg PO BID Discharge Orders: Discharge ED (Routine); Ordered 03/14/24 Ordered By: Debra Lomas Referrals: Elian Raymundo MD [Physician] - 4-7 days (Please go tomorrow morning to the lab for lab draw. Have lab drawn before you take your morning medications) Discharge Diet: Usual diet Discharge Activity: Increase activity as tolerated Patient Instructions: Urinary Tract Infection in Women (ED), Recurrent Seizures in Adults (ED) Activity Restrictions/Additional Instructions: Thank you for choosing [facility] for your healthcare needs today. Please realize this is an emergency room and that we are providing you with a medical screening exam and this may not be complete and all inclusive of all the testing and or work up that you may need to determine your ailment or severity of your illness. You have been screened and evaluated and felt safe for discharge. Health conditions do change or evolve sometimes and as such it is important that you follow up with your Primary Doctor to be re checked, 3-5 days is a general good time frame for follow up. You are always welcome to return to the ED for re assessment if your symptoms are worsening or you have new concerns Coding Level of Care Code ED Matrix Supervisor for Heather Neff
--- NOTE | 2024-03-14 11:55 | PC.NURSE ---
pt went to restroom to attempt urine sample, pt unsuccessful, will try again later.
[2024-03-14 12:02] LABS: Basophils # 0.1 10^3/uL (0.0-0.1); Basophils % 0.9 %; Eosinophils # 0.2 10^3/uL (0.0-0.8); Eosinophils % 1.6 %; Hematocrit 39.8 % (36-47); Lymphocytes % 9.4 %; Mean Corpuscular HGB Conc 33.4 g/dL (30-55); Mean Corpuscular Volume 98.8 fl (85-98); Mean Platelet Volume 9.3 fL (7.4-10.4); Monocytes # 0.5 10^3/uL (0.2-0.9); Monocytes % 4.3 %; Neutrophils % 83.1 %; Nucleated Red Blood Cells % 0 %; Platelet Count 280 10^3/cmm (157-399); Red Blood Count 4.03 10^6/uL (3.85-5.65); Red Cell Distribution Width 12.4 % (12.1-15.1); White Blood Count 10.57 10^3/uL (3.29-11.43)
[2024-03-14 12:20] LABS: Alanine Aminotransferase 10 U/L (0-33); Albumin Level 4.6 g/dL (3.5-5.2); Alkaline Phosphatase 116 U/L (35-105); Anion Gap 16.3 (5-19); Aspartate Amino Transferase 16 U/L (0-32); Blood Urea Nitrogen 6 mg/dL (6-20); C Reactive Protein 6.9 mg/L (0.0-4.9); Calcium 9.5 mg/dL (8.5-10.5); Carbon Dioxide 22 mmol/L (22-29); Chloride 104 mmol/L (98-107); Creatinine Clr Calc Pharmacy 138.6943; Globulin 3.4 g/dL (1.3-4.6); Glomerular Filtration Rate 105.6 mL/min (90-130); Glucose 96 mg/dL (65-115); Osmolality Calculated 283 mOsm/kg (285-295); Potassium 4.3 mmol/L (3.5-5.1); Sodium 138 mmol/L (136-145); Total Bilirubin 0.3 mg/dL (0.15-1.2)
[2024-03-14 12:21] LABS: Lactic Sepsis W/Reflex 1.3 mmol/L (0.5-2.2)
[2024-03-14 12:43] LABS: Bilirubin Urine Negative (Negative); Blood Urine Negative (Negative); Glucose Urine UA Negative (Normal); Ketones Urine Negative (Negative); Leukocyte Esterase Urine 3+ (Negative); Nitrate Urine Negative (Negative); Protein Urine Trace (Negative); Specific Gravity, Urine 1.026 (1.005-1.030); Urine Appearance Turbid (CLEAR); Urine Color Yellow (Yellow); pH Urine 6.5 (5-7)
[2024-03-14 12:46] LABS: Bacteria Urine 3+ /hpf; Hyaline Casts Urine 6.17 /lpf; Squamous Epithelial Cell Urine 21-50 /hpf (0-5); WBC Urine >100 /hpf (0-5)
[2024-03-14 13:08] LABS: Trichomonas Urine 2+ /hpf
[2024-03-14 13:09] LABS: Add Urine Culture? Yes
[2024-03-14 13:14] LABS: Covid PCR NEGATIVE (Negative); Influenza A NEGATIVE (Negative); Influenza B NEGATIVE (Negative); Respiratory Syncytial Virus Ce NEGATIVE (Negative)
[2024-03-14] MEDS: sodium chloride 0.9% 1,000 ML 999 ML IV (14:32)
[2024-03-14] MEDS: ketorolac 30 mg/mL INJ IVP (14:36)
[2024-03-14] MEDS: LORazepam 2 mg/mL INJ 1 mL 1 MG IVP (14:38)
[2024-03-14] MEDS: cefTRIAXone 1,000 mg SDV 1000 MG IVP (14:44)
== END 2024-03-14 15:33 | disposition home or self-care (01) ==
PROVIDERS: Emergency Provider Emergency Medicine
DX: G40.909 Epilepsy, unspecified, not intractable, without status epilepticus (principal); N39.0 Urinary tract infection, site not specified; Z11.52 Encounter for screening for COVID-19
CPT/HCPCS: 0241U; 36415; 80053; 81001; 83605; 85025; 86140; 87086; 96361; 96374; 96375; 99284; J0696; J1885; J2060; J7030

== ENCOUNTER 2024-03-15 08:59 | Outpatient (CLI) | payer MEDICAID, SELFPAY | END 2024-03-15 09:00 | disposition home or self-care (01) | PROVIDERS: PCP Nurse Practitioner Family; Visit Provider Psychiatry & Neurology Neurology | DX: G40.919 Epilepsy, unspecified, intractable, without status epilepticus (principal); G40.909 Epilepsy, unspecified, not intractable, without status epilepticus | CPT/HCPCS: 36415; 80167; 80168; 80175 ==

== ENCOUNTER 2024-03-29 12:49 | Oncology outpatient (recurring) (ONCR) | payer MEDICAID, SELFPAY ==
[2024-03-29 13:08] LABS: Basophils # 0.1 10^3/uL (0.0-0.1); Basophils % 2.3 %; Eosinophils # 0.6 10^3/uL (0.0-0.8); Eosinophils % 13.1 %; Hematocrit 36.8 % (36-47); Lymphocytes # 1.7 10^3/uL (0.8-4.8); Lymphocytes % 38.9 %; Mean Corpuscular HGB Conc 32.6 g/dL (30-55); Mean Corpuscular Hemoglobin 32.7 pg (27-33); Mean Corpuscular Volume 100.3 fl (85-98); Mean Platelet Volume 9.3 fL (7.4-10.4); Monocytes # 0.4 10^3/uL (0.2-0.9); Monocytes % 7.9 %; Neutrophils # 1.63 10^3/uL (1.8-7.7); Neutrophils % 36.9 %; Nucleated Red Blood Cells % 0 %; Platelet Count 271 10^3/cmm (157-399); Red Blood Count 3.67 10^6/uL (3.85-5.65); Red Cell Distribution Width 12.4 % (12.1-15.1); White Blood Count 4.42 10^3/uL (3.29-11.43)
[2024-03-29 13:22] LABS: Ferritin 44 ng/mL (15-150); Iron 111 ug/dL (37-145); Percent Saturation 38.6 % (20-50); Total Iron Binding Capacity 287 mcg/dl; Unsaturated Iron Binding 176 ug/dL (112-347)
== END 2024-04-07 23:59 | disposition home or self-care (01) ==
PROVIDERS: Psychiatry & Neurology Neurology; PCP Nurse Practitioner Family; Visit Provider Internal Medicine Medical Oncology
DX: D64.9 Anemia, unspecified (principal); G40.409 Other generalized epilepsy and epileptic syndromes, not intractable, without status epilepticus; E55.9 Vitamin D deficiency, unspecified; G40.919 Epilepsy, unspecified, intractable, without status epilepticus; Z53.9 Procedure and treatment not carried out, unspecified reason; E53.8 Deficiency of other specified B group vitamins; Z79.899 Other long term (current) drug therapy
CPT/HCPCS: 36415; 80167; 80168; 80175; 82728; 83540; 83550; 85025; 99212; 99213; 99214

== ENCOUNTER → 2024-03-31 13:48 | Outpatient (BNVA) | payer MEDICAID, SELFPAY | PROVIDERS: PCP Nurse Practitioner Family; Visit Provider Podiatrist Foot & Ankle Surgery | DX: R26.9 Unspecified abnormalities of gait and mobility (principal) | CPT/HCPCS: 99213 ==

== ENCOUNTER 2024-04-04 08:27 | Outpatient (CLI) | payer MEDICAID, SELFPAY | END 2024-04-04 08:28 | disposition home or self-care (01) | LOC: LAB 08:28 | PROVIDERS: PCP Nurse Practitioner Family; Visit Provider Psychiatry & Neurology Neurology | DX: G40.919 Epilepsy, unspecified, intractable, without status epilepticus (principal) | CPT/HCPCS: 80168; 80175 ==

== ENCOUNTER → 2024-04-05 13:00 | Outpatient (BNVA) | payer MEDICAID, SELFPAY | PROVIDERS: PCP Nurse Practitioner Family; Referring Provider Psychiatry & Neurology Neurology; Visit Provider Psychiatry & Neurology Neurology | DX: G40.919 Epilepsy, unspecified, intractable, without status epilepticus | CPT/HCPCS: 95816; 95819 ==

== ENCOUNTER → 2024-04-12 13:54 | Outpatient (BNVA) | payer MEDICAID, SELFPAY | PROVIDERS: PCP Nurse Practitioner Family; Visit Provider Psychiatry & Neurology Neurology | DX: G40.409 Other generalized epilepsy and epileptic syndromes, not intractable, without status epilepticus; E55.9 Vitamin D deficiency, unspecified; G40.919 Epilepsy, unspecified, intractable, without status epilepticus | CPT/HCPCS: 99212 ==

== ENCOUNTER → 2024-06-09 15:21 | Outpatient (BNVA) | payer MEDICAID, SELFPAY | PROVIDERS: PCP Nurse Practitioner Family; Visit Provider Nurse Practitioner Family | DX: L02.32 Furuncle of buttock (principal); T81.89XA Other complications of procedures, not elsewhere classified, initial encounter; X58.XXXA Exposure to other specified factors, initial encounter; Z71.3 Dietary counseling and surveillance; I87.2 Venous insufficiency (chronic) (peripheral) | CPT/HCPCS: 99214 ==

== ENCOUNTER 2024-07-19 11:31 | Oncology outpatient (recurring) (ONCR) | payer MEDICAID, SELFPAY ==
[2024-07-19 11:58] LABS: Basophils # 0.1 10^3/uL (0.0-0.1); Basophils % 1.9 %; Eosinophils # 0.8 10^3/uL (0.0-0.8); Eosinophils % 16.4 %; Hematocrit 36.6 % (36-47); Lymphocytes # 1.7 10^3/uL (0.8-4.8); Lymphocytes % 36.4 %; Mean Corpuscular HGB Conc 33.6 g/dL (30-55); Mean Corpuscular Hemoglobin 33.4 pg (27-33); Mean Corpuscular Volume 99.5 fl (85-98); Mean Platelet Volume 9.6 fL (7.4-10.4); Monocytes # 0.3 10^3/uL (0.2-0.9); Monocytes % 5.3 %; Neutrophils # 1.89 10^3/uL (1.8-7.7); Neutrophils % 39.8 %; Nucleated Red Blood Cells % 0 %; Platelet Count 283 10^3/cmm (157-399); Red Blood Count 3.68 10^6/uL (3.85-5.65); Red Cell Distribution Width 11.9 % (12.1-15.1); White Blood Count 4.75 10^3/uL (3.29-11.43)
[2024-07-19 12:02] LABS: Reticulocyte % 1.4 % (0.5-2.0)
[2024-07-19 12:19] LABS: Alanine Aminotransferase 10 U/L (0-33); Albumin Level 4.4 g/dL (3.5-5.2); Alkaline Phosphatase 95 U/L (35-105); Anion Gap 15.1 (5-19); Aspartate Amino Transferase 13 U/L (0-32); Blood Urea Nitrogen 8 mg/dL (6-20); Calcium 9.5 mg/dL (8.5-10.5); Carbon Dioxide 22 mmol/L (22-29); Chloride 106 mmol/L (98-107); Creatinine Clr Calc Pharmacy 172.4308; Ferritin 67 ng/mL (15-150); Glomerular Filtration Rate 126.2 mL/min (90-130); Glucose 86 mg/dL (65-115); Iron 113 ug/dL (37-145); Lactate Dehydrogenase 116 U/L (135-214); Osmolality Calculated 286 mOsm/kg (285-295); Percent Saturation 47.4 % (20-50); Potassium 4.1 mmol/L (3.5-5.1); Sodium 139 mmol/L (136-145); Total Bilirubin 0.2 mg/dL (0.15-1.2); Total Iron Binding Capacity 238 mcg/dl; Total Protein 7.4 g/dL (6.6-8.7); Unsaturated Iron Binding 125 ug/dL (112-347)
[2024-07-19 12:33] LABS: Vitamin B12 520 pg/mL (232-1245)
[2024-07-19 12:35] LABS: Folate Level 10.7 ng/mL (4.8-37.3)
[2024-07-23 11:04] LABS: Lamotrigine (Lamictal) Level 7.4 mcg/mL (2.5-15.0)
== END 2024-08-05 23:59 | disposition home or self-care (01) ==
PROVIDERS: Internal Medicine Hematology & Oncology; Psychiatry & Neurology Neurology; PCP Nurse Practitioner Family; Visit Provider Internal Medicine Medical Oncology
DX: E53.8 Deficiency of other specified B group vitamins (principal); D64.9 Anemia, unspecified; G40.909 Epilepsy, unspecified, not intractable, without status epilepticus; G40.409 Other generalized epilepsy and epileptic syndromes, not intractable, without status epilepticus; G40.919 Epilepsy, unspecified, intractable, without status epilepticus; E61.1 Iron deficiency; Z72.0 Tobacco use; Z79.899 Other long term (current) drug therapy
CPT/HCPCS: 36415; 80053; 80167; 80168; 80175; 82607; 82728; 82746; 83540; 83550; 83615; 84238; 85025; 85045; 99214

== ENCOUNTER 2024-07-22 09:08 | Outpatient (CLI) | payer MEDICAID, SELFPAY ==
[2024-07-27 06:09] LABS: Lamotrigine (Lamictal) Level 4.7 mcg/mL (2.5-15.0)
== END 2024-07-22 09:09 | disposition home or self-care (01) ==
PROVIDERS: PCP Nurse Practitioner Family; Referring Provider Psychiatry & Neurology Neurology; Visit Provider Psychiatry & Neurology Neurology
DX: G40.909 Epilepsy, unspecified, not intractable, without status epilepticus (principal); G40.409 Other generalized epilepsy and epileptic syndromes, not intractable, without status epilepticus; G40.919 Epilepsy, unspecified, intractable, without status epilepticus
CPT/HCPCS: 36415; 80167; 80168; 80175

== ENCOUNTER → 2024-08-10 14:27 | Outpatient (BNVA) | payer MEDICAID, SELFPAY | PROVIDERS: PCP Nurse Practitioner Family; Visit Provider Psychiatry & Neurology Neurology | DX: G40.919 Epilepsy, unspecified, intractable, without status epilepticus (principal) | CPT/HCPCS: 99212 ==

== ENCOUNTER 2024-08-16 12:36 | Outpatient (CLI) | payer MEDICAID, SELFPAY ==
--- NOTE | 2024-08-16 12:42 | MR_ITS ---
WS: [id number] MRI LEFT KNEE HISTORY: ACUTE PAIN OF LEFT KNEE COMPARISON: 02/07/2015 Anterior cruciate ligament: Intact. Posterior cruciate ligament: Intact. Medial collateral ligament: Intact. Posterior lateral corner structures: Intact. Medial menisci: Intact. Normal signal, size and shape. Lateral meniscus: Intact. Normal signal, size and shape. Extensor mechanism: Mild laxity and thinning of the patellar tendon. Distal quadriceps tendon is normal. There is a screw through the anterior patella. Fluid and soft tissue: Small joint effusion. No Roldan's cyst. Osseous and articular structures: Patellofemoral compartment: Moderate lateral subluxation of the patella. There is thinning and atrophy of the medial patellar retinaculum. Mild flattening and dysplasia of the trochlea. Medial compartment: Unremarkable. Lateral compartment: Unremarkable. MR/MR knee LT con* [id number] IMPRESSION: 1. Mild progression of lateral patellar subluxation since the prior study from 2014. Flattening of the normal trochlear inclination angle. 2. Atrophied medial patellar retinaculum. 3. Mild atrophy of the patellar tendon. 4. Postsurgical hardware noted in the patella, distal femur and proximal tibia . 5. No meniscal tear.
== END 2024-08-16 12:37 | disposition home or self-care (01) ==
PROVIDERS: PCP Nurse Practitioner Family; Visit Provider Orthopaedic Surgery
DX: M25.562 Pain in left knee (principal); S83.012A Lateral subluxation of left patella, initial encounter; X58.XXXA Exposure to other specified factors, initial encounter; R93.6 Abnormal findings on diagnostic imaging of limbs; M62.562 Muscle wasting and atrophy, not elsewhere classified, left lower leg; Z98.890 Other specified postprocedural states
CPT/HCPCS: 73721

== ENCOUNTER 2024-08-29 09:25 | Outpatient (CLI) | payer MEDICAID, SELFPAY | END 2024-08-29 09:26 | disposition home or self-care (01) | PROVIDERS: PCP Nurse Practitioner Family; Visit Provider Psychiatry & Neurology Neurology | DX: G40.919 Epilepsy, unspecified, intractable, without status epilepticus (principal) | CPT/HCPCS: 36415; 80168; 80175 ==

== ENCOUNTER → 2024-09-06 11:31 | Outpatient (BNVA) | payer MEDICAID, SELFPAY | PROVIDERS: PCP Nurse Practitioner Family; Referring Provider Psychiatry & Neurology Neurology; Visit Provider Psychiatry & Neurology Neurology | DX: G40.919 Epilepsy, unspecified, intractable, without status epilepticus (principal); G40.909 Epilepsy, unspecified, not intractable, without status epilepticus; G40.409 Other generalized epilepsy and epileptic syndromes, not intractable, without status epilepticus | CPT/HCPCS: 95816 ==

== ENCOUNTER 2025-01-24 11:57 | Oncology outpatient (recurring) (ONCR) | payer MEDICAID, SELFPAY ==
[2025-01-24 12:23] LABS: Hematocrit 36.8 % (36-47); Hemoglobin 12.10 g/dL (11.27-16.99); Mean Corpuscular HGB Conc 32.9 g/dL (30-55); Mean Corpuscular Hemoglobin 32.5 pg (27-33); Mean Corpuscular Volume 98.9 fl (85-98); Nucleated Red Blood Cells % 0 %; Platelet Count 266 10^3/cmm (157-399); Red Blood Count 3.72 10^6/uL (3.85-5.65); White Blood Count 6.37 10^3/uL (3.29-11.43)
[2025-01-24 12:41] LABS: Alanine Aminotransferase 13 U/L (0-33); Albumin Level 4.4 g/dL (3.5-5.2); Alkaline Phosphatase 107 U/L (35-105); Anion Gap 13.9 (5-19); Aspartate Amino Transferase 15 U/L (0-32); Blood Urea Nitrogen 8 mg/dL (6-20); Calcium 9.4 mg/dL (8.5-10.5); Carbon Dioxide 23 mmol/L (22-29); Chloride 109 mmol/L (98-107); Ferritin 32 ng/mL (15-150); Globulin 2.7 g/dL (1.3-4.6); Glucose 113 mg/dL (65-115); Iron 109 ug/dL (37-145); Osmolality Calculated 293 mOsm/kg (285-295); Potassium 3.9 mmol/L (3.5-5.1); Sodium 142 mmol/L (136-145); Total Iron Binding Capacity 246 mcg/dl; Total Protein 7.1 g/dL (6.6-8.7); Unsaturated Iron Binding 137 ug/dL (112-347)
[2025-01-24 12:57] LABS: Vitamin B12 362 pg/mL (232-1245)
== END 2025-02-05 23:59 | disposition home or self-care (01) ==
PROVIDERS: Nurse Practitioner Family; PCP Nurse Practitioner Family; Visit Provider Internal Medicine Medical Oncology
DX: E53.8 Deficiency of other specified B group vitamins (principal); D64.9 Anemia, unspecified; D68.00 Von Willebrand disease, unspecified; Z79.899 Other long term (current) drug therapy
CPT/HCPCS: 36415; 80053; 82607; 82728; 82746; 83540; 83550; 83921; 85025; 99214

== ENCOUNTER → 2025-02-02 13:03 | Outpatient (BNVA) | payer MEDICAID, SELFPAY | PROVIDERS: PCP Nurse Practitioner Family; Visit Provider Nurse Practitioner Family | DX: L21.8 Other seborrheic dermatitis (principal); L23.9 Allergic contact dermatitis, unspecified cause; L73.9 Follicular disorder, unspecified; L81.4 Other melanin hyperpigmentation | CPT/HCPCS: 99214 ==

== ENCOUNTER → 2025-03-27 14:36 | Outpatient (BNVA) | payer MEDICAID, SELFPAY | PROVIDERS: PCP Nurse Practitioner Family; Visit Provider Podiatrist Foot & Ankle Surgery | DX: R26.9 Unspecified abnormalities of gait and mobility (principal) | CPT/HCPCS: 99213 ==

== ENCOUNTER 2025-05-09 11:26 | Oncology outpatient (recurring) (ONCR) | payer MEDICAID, SELFPAY ==
[2025-05-09 12:11] LABS: Hematocrit 38.6 % (36-47); Hemoglobin 12.30 g/dL (11.27-16.99); Mean Corpuscular HGB Conc 31.9 g/dL (30-55); Mean Corpuscular Hemoglobin 32.5 pg (27-33); Mean Corpuscular Volume 101.8 fl (85-98); Nucleated Red Blood Cells % 0 %; Platelet Count 269 10^3/cmm (157-399); Red Blood Count 3.79 10^6/uL (3.85-5.65); White Blood Count 5.84 10^3/uL (3.29-11.43)
[2025-05-09 12:43] LABS: Alanine Aminotransferase 10 U/L (0-33); Albumin Level 4.5 g/dL (3.5-5.2); Alkaline Phosphatase 106 U/L (35-105); Anion Gap 16.0 (5-19); Aspartate Amino Transferase 13 U/L (0-32); Blood Urea Nitrogen 10 mg/dL (6-20); Calcium 9.5 mg/dL (8.5-10.5); Carbon Dioxide 22 mmol/L (22-29); Chloride 104 mmol/L (98-107); Creatinine Clr Calc Pharmacy 149.5576; Ferritin 45 ng/mL (15-150); Globulin 3.1 g/dL (1.3-4.6); Glucose 88 mg/dL (65-115); Iron 61 ug/dL (37-145); Osmolality Calculated 284 mOsm/kg (285-295); Potassium 4.0 mmol/L (3.5-5.1); Sodium 138 mmol/L (136-145); Total Iron Binding Capacity 265 mcg/dl; Total Protein 7.6 g/dL (6.6-8.7); Unsaturated Iron Binding 204 ug/dL (112-347)
[2025-05-09 12:58] LABS: Vitamin B12 757 pg/mL (232-1245)
== END 2025-06-07 23:59 | disposition home or self-care (01) ==
PROVIDERS: PCP Nurse Practitioner Family; Visit Provider Nurse Practitioner Family
DX: E53.8 Deficiency of other specified B group vitamins (principal); D64.9 Anemia, unspecified
CPT/HCPCS: 36415; 36591; 80053; 82607; 82728; 83540; 83550; 83921; 85025; 99213

== ENCOUNTER → 2025-05-23 13:34 | Outpatient (BNVA) | payer MEDICAID, SELFPAY | PROVIDERS: PCP Nurse Practitioner Family; Visit Provider Student in an Organized Health Care Education/Training Program | DX: M25.562 Pain in left knee (principal); M25.561 Pain in right knee; Z98.890 Other specified postprocedural states | CPT/HCPCS: 73560; 73565; 99204 ==